=== PATIENT | female | born 1960 | race Caucasian/White ===

== ENCOUNTER → 2021-10-13 10:52 | Outpatient (CLI) | payer BC, SELFPAY ==
--- NOTE | ~2021-10-13 | MM_ITS ---
EXAMINATION: MM screening nya BI w jourdan HISTORY: Screening TECHNIQUE: Craniocaudal and mediolateral oblique 3-D tomosynthesis images were obtained and synthetic 2-D images were generated. CAD analysis was submitted and interpreted. COMPARISON: Comparison to multiple prior studies sequentially, with oldest reviewed study dated 04/19. BREAST PARENCHYMAL COMPOSITION: There are scattered areas of fibroglandular density. FINDINGS: There is no evidence of suspicious mass, calcification, or architectural distortion to sugg est malignancy in either breast. There has been no suspicious interval change. IMPRESSION: 1. No mammographic evidence of malignancy. 2. Recommend routine screening mammography in one year. BI-RADS Category 1: Negative Reviewed, dictated and finalized at location A. ROE TECHNICIAN
--- NOTE | ~2021-10-13 | DEXA_ITS ---
Bone Density Report Name: RADHAMES DE LA CRUZ Age: 61 Sex: Female Ethnicity: White Date of : 1960 Indication: postmenopausal; screening for osteoporosis; Referring Provider: Juan, Shagufta Taylor Study: Bone densitometry was performed. Exam Date: October 13, 2021 Accession number: [id number] Bone Density: Region BMD T-score Z-score Classification AP Spine (L1-L4) 1.008 -0.4 1.3 Normal Femoral Neck (Left) 0.994 1.3 2.7 Normal Total Hip (Left) 1.111 1.4 2.5 Normal Femoral Neck (Right) 0.985 1.2 2.7 Normal Total Hip (Right) 1.115 1.4 2.6 Normal Total Hip Mean 1.113 1.4 2.6 Normal World Health Organization criteria for BMD impression classify patients as: Normal (T-score at or above -1.0), Osteopenia (T-score between -1.0 and -2.5), or Osteoporosis (T-score at or below -2.5). 10-year Fracture Risk: FRAX not reported because: All T-scores for Spine Total, Hip Total, Femoral Neck at or above -1.0 Previous Exams: Region Exam Age BMD T-score BMD Change BMD Change Date g/cm2 vs Baseline vs Previous AP Spine(L1-L4) 10/13/2021 61 1.008 -0.4 -0.032 -0.032 04/19/2012 52 1.040 -0.1 Total Hip(Left) 10/13/2021 61 1.111 1.4 0.034 0.034 04/19/2012 52 1.077 1.1 Total Hip(Right) 10/13/2021 61 1.115 1.4 0.028 0.028 04/19/2012 52 1.087 1.2 *Denotes significance at 95% confidence level, LSC for AP Spine = 0.022 g/cm2, LSC for Total Hip = 0.027 g/cm2 Clinical Information Provided by Patient: Has used the following medications: Vitamin D Patient maximum height was 62.3 Menopause Age: 50 Drinks caffeinated beverages Onset of menses at age 9 Number of children 2 Impression: The patient has normal bone mass. No significant bone loss was observed. Discussion: BONE DENSITY IS ABOVE THE MINIMUM DESIRABLE LEVEL AT ALL SKELETAL SITES TESTED. This patient?s bone mineral density is above the minimum desirable level (T-score -1.0 or better) at all sites measured. The patient should follow a healthful lifestyle (good nutrition with adequate calcium and vitamin D, and appropriate weight-bearing exercise). Follow-Up: Consider repeating this study in 5 years or sooner if there is some new clinical indication. Reported by: MAX on 10/13/2021 11:21:00 AM. Reviewed, dictated and finalized at location ABarbara LAIRD
== END ==
PROVIDERS: PCP Family Medicine; Visit Provider Nurse Practitioner Obstetrics & Gynecology
DX: Z12.31 Encounter for screening mammogram for malignant neoplasm of breast (principal); Z78.0 Asymptomatic menopausal state
CPT/HCPCS: 77063; 77067; 77080

== ENCOUNTER → 2022-11-20 12:46 | Outpatient (CLI) | payer BC, SELFPAY ==
--- NOTE | ~2022-11-20 | MM_ITS ---
EXAMINATION: MM screening nya BI w jourdan HISTORY: Screening mammogram TECHNIQUE: Craniocaudal and mediolateral oblique 3-D tomosynthesis images were obtained and synthetic 2-D images were generated. CAD analysis was submitted and interpreted. COMPARISON: 10/13/2021, 04/10/2018 bilateral screening mammogram examinations BREAST PARENCHYMAL COMPOSITION: There are scattered areas of fibroglandular density. FINDINGS: There is no evidence of suspicious mass, calcification, or architectural distortion to sugg est malignancy in either breast. There has been no suspicious interval change. IMPRESSION: 1. No mammographic evidence of malignancy. 2. Recommend routine screening mammography in one year. BI-RADS Category 1: Negative Reviewed, dictated and finalized at location A. MENDER
== END ==
PROVIDERS: PCP Nurse Practitioner Obstetrics & Gynecology; Visit Provider Nurse Practitioner Obstetrics & Gynecology
DX: Z12.31 Encounter for screening mammogram for malignant neoplasm of breast (principal)
CPT/HCPCS: 77063; 77067

== ENCOUNTER 2024-03-27 11:17 | Outpatient (CLI) | payer BC, SELFPAY ==
--- NOTE | ~2024-03-27 | MM_ITS ---
EXAMINATION: MM screening nya BI w jourdan HISTORY: Screening mammogram TECHNIQUE: Craniocaudal and mediolateral oblique 3-D tomosynthesis images were obtained and synthetic 2-D images were generated. CAD analysis was submitted and interpreted. COMPARISON: 11/20/2022, 10/13/2021, 04/10/2013 BREAST PARENCHYMAL COMPOSITION:Not Dense. There are scattered areas of fibroglandular density. FINDINGS: Interval development of bilateral axillary lymphadenopathy, with multiple enlarged lymph no david present. No suspicious mass, calcification, or architectural distortion are identified in either breast otherwise to suggest malignancy. There has been no other suspicious interval change. IMPRESSION: Interval development of bilateral axillary lymphadenopathy. Multiple bilateral axillary lymph nodes s uggest a systemic process, such as infectious/inflammatory lymph nodes, connective tissue disorder, o r possibly lymphoma. Consider ultrasound and/or additional workup as indicated. No mammographic evidence for malignancy in the breasts otherwise. BI-RADS Category 2: Benign finding(s). Reviewed, dictated and finalized at location M. IMPRESSION: Interval development of bilateral axillary lymphadenopathy. Multiple bilateral axillary lymph nodes suggest a systemic process, such as infectious/inflammator y lymph nodes, connective tissue disorder, or possibly lymphoma. Consider ultra sound and/or additional workup as indicated. No mammographic evidence for malignancy in the breasts otherwise. BI-RADS Category 2: Benign finding(s).
== END 2024-03-27 11:18 ==
LOC: MICIMG 11:20
PROVIDERS: Visit Provider Nurse Practitioner Obstetrics & Gynecology
DX: Z12.31 Encounter for screening mammogram for malignant neoplasm of breast (principal)
CPT/HCPCS: 77063; 77067

== ENCOUNTER 2024-08-01 08:06 | Outpatient (CLI) | payer BC, SELFPAY ==
--- NOTE | ~2024-08-01 | DEXA_ITS ---
Bone Density Report Name: RADHAMES DE LA CRUZ Age: 64 Sex: Female Ethnicity: White Date of : 1960 Indication: postmenopausal; screening for osteoporosis; prior fracture; cancer; Referring Provider: CECE, TANA Taylor Study: Bone densitometry was performed. Exam Date: August 01, 2024 Accession number: [id number] Bone Density: Region BMD T-score Z-score Classification AP Spine(L1-L4) 1.034 -0.1 1.7 Normal Femoral Neck (Left) 0.968 1.1 2.7 Normal Total Hip (Left) 1.229 2.4 3.6 Normal Femoral Neck (Right) 0.919 0.6 2.2 Normal Total Hip (Right) 1.208 2.2 3.5 Normal Total Hip Mean 1.218 2.3 3.6 Normal World Health Organization criteria for BMD impression classify patients as: Normal (T-score at or above -1.0), Osteopenia (T-score between -1.0 and -2.5), or Osteoporosis (T-score at or below -2.5). 10-year Fracture Risk: FRAX not reported because: All T-scores for Spine Total, Hip Total, Femoral Neck at or above -1.0 Clinical Information Provided by Patient: Has had a low trauma fracture Has used the following medications: Vitamin D Has the following medical conditions: Cancer Patient maximum height was 62 Menopause Age: 48 No regular weight bearing exercise Drinks caffeinated beverages Onset of menses at age 9 Number of children 2 Impression: The patient has normal bone mass. The patient has risk factors, including: previous fracture. Discussion: BONE DENSITY IS ABOVE THE MINIMUM DESIRABLE LEVEL AT ALL SKELETAL SITES TESTED. This patient?s bone mineral density is above the minimum desirable level (T-score -1.0 or better) at all sites measured. The patient should follow a healthful lifestyle (good nutrition with adequate calcium and vitamin D, and appropriate weight-bearing exercise). Follow-Up: Consider repeating this study in 5 years or sooner if there is some new clinical indication. Reported by: BROOKE on 08/01/2024 8:44:00 AM. Reviewed, dictated and finalized at location ABarbara LAIRD
== END 2024-08-01 08:07 | disposition home or self-care (01) ==
PROVIDERS: Visit Provider Nurse Practitioner Obstetrics & Gynecology
DX: Z13.820 Encounter for screening for osteoporosis (principal); M85.80 Other specified disorders of bone density and structure, unspecified site
CPT/HCPCS: 77080

== ENCOUNTER 2025-03-30 10:34 | Outpatient (CLI) | payer BC, SELFPAY ==
--- NOTE | ~2025-03-30 | MM_ITS ---
EXAMINATION: MM screening [facility] BI w jourdan HISTORY: Screening mammogram TECHNIQUE: Craniocaudal and mediolateral oblique 3-D tomosynthesis images were obtained and synthetic 2-D images were generated. CAD analysis was submitted and interpreted. COMPARISON: 03/27/2024, 11/20/2022, 10/13/2021 BREAST PARENCHYMAL COMPOSITION:Not Dense. There are scattered areas of fibroglandular density. FINDINGS: No suspicious mass, calcification, or architectural distortion are identified in either rubi ast to suggest malignancy. There has been no suspicious interval change. IMPRESSION: No mammographic evidence of malignancy. Recommend routine screening mammography in one year. BI-RADS Category 1: Negative Reviewed, dictated and finalized at location .
== END 2025-03-30 10:35 | disposition home or self-care (01) ==
LOC: MICIMG 10:39
PROVIDERS: PCP Obstetrics & Gynecology; Visit Provider Obstetrics & Gynecology
DX: Z12.31 Encounter for screening mammogram for malignant neoplasm of breast (principal)
CPT/HCPCS: 77063; 77067